=== PATIENT | female | born 1975 | race Caucasian/White ===

== ENCOUNTER → 2017-04-10 | Outpatient (CLI) | payer BC | LOC: NM 07:56 | PROVIDERS: ATTEND Family Medicine | DX: R17 Unspecified jaundice (principal) | CPT/HCPCS: 78226; A9537 ==

== ENCOUNTER → 2017-05-21 | Outpatient (CLI) | payer BC ==
--- NOTE | 2017-05-21 16:23 | DI ---
AP PELVIS and LEFT HIP, 05/21/2017 3:32 PM: Clinical History: Left hip pain. Previous Exam: None at this facility. There is no soft tissue abnormality. The bony structures of the pelvis are normal. 2 views of the lef t hip show minimal acetabular bony over coverage. There is no dysplastic "bump", and the femoral head is spherical. The joint spaces preserved. Readin. There is very mild acetabular bony over coverage , and this patient potentially can have femoroac etabular impingement. If this patient has symptoms suggesting a labral tear, then an MRI scan of the hip with intra-articular contrast would be helpful. Also, intra-articular lidocaine can be used as a test to confirm if the patient has reduction or elimination of symptoms with the anesthetic injection . 2. The AP pelvis view is unremarkable.
--- NOTE | 2017-05-22 21:44 | DI ---
LEFT BREAST ULTRASOUND, 05/21/2017 2:49 PM: Clinical History: Left breast lump. Prior Exam: 07/27/2016. Comparison is made with the previous screening mammograms from 01/07/2017. Scans are performed by the technologist and myself through all four quadrants of the left breast with the high resolution linear array probe. Color Doppler ultrasound was also performed. In the axillary tail toward the 2:00-2:30 position, there is a simple cyst measuring approximately 12 x 25 x 25 mm, and this cyst has increased slightly since the previous exam. This cyst corresponds ap parently to the lump that was noted on the clinical breast exam There is a the second smaller cyst cl oser to the 2:00 position also in the axillary tail measuring 6 x 13 x 13 mm. Toward the 11:00 to 12: 00 position is a third cyst that measures 12 x 12 x 6 mm. These cysts were visualized on the previous exam as well as on the screening mammogram. No solid mass is identified. Follow Up: The patient was advised to perform monthly self breast examinations to monitor the lesions over the next 2 - 3 months. She was instructed to contact her health care provider promptly if the l ump becomes larger during that time. Otherwise, if the lump disappears or remains stable, she was adv ised to have a follow-up breast clinical examination with her health care provider in approximately 2 - 3 months to verify those findings of the patient. If at the time of the breast clinical examinatio n there is still clinical concern regarding this lesion, then surgical consultation would be indicate d. BIRADS Category: 2. Benign finding. The large cyst in the left axillary tail presumably represents th e palpable mass. It is a cyst that has increased slightly since the last exam. There are 2 other smal ler cysts present at the 11-12:00 position and at the 2:00 position. Assessment: Benign finding.
== END ==
LOC: MAMMO 14:43
PROVIDERS: ATTEND Family Medicine
DX: N63 Unspecified lump in breast (principal); M25.552 Pain in left hip; N60.02 Solitary cyst of left breast
CPT/HCPCS: 73502; 76641

== ENCOUNTER → 2017-06-03 | Outpatient (CLI) | payer BC ==
--- NOTE | 2017-06-04 11:01 | DI ---
XR L-SPINE 2-3 VW,06/03/2017 4:10 PM: Clinical History: Left hip pain Previous Exam: None at this facility. Findings: AP and lateral views of the lumbar spine are obtained to include a coned down view of the lumbar spin e, and demonstrate anatomic alignment without fractures. There is metallic density overlying the live r. A nonobstructive bowel gas pattern is seen. A few phleboliths are seen within the deep pelvis. Impression: No fracture.
== END ==
LOC: ORTHO 16:30
PROVIDERS: ATTEND Orthopaedic Surgery
DX: M25.552 Pain in left hip (principal)
CPT/HCPCS: 72100